=== PATIENT | female | born 1965 | race Caucasian/White ===

== ENCOUNTER 2017-07-29 13:02 | Emergency (ER) | payer OTHER ==
[~2017-07-29] VITALS: Ht 175.3 cm; Wt 79.4 kg
[~2017-07-29 13:02] MED LIST: ABILIFY15 MG PO; AUGMENTIN 875875 MG PO; CELEXA40 MG PO; COLACE100 MG PO; COMPAZINE25 MG RE; CYPROHEPTADINE 44 M1 PO; DARVOCET-N 1001 EACH PO; DILAUDID 4 MG TA4 MG PO; FLEXERIL PO; KEFLEX500 MG PO; LEXAPRO20 MG PO; LITHIUM CARBON450 MG; LITHIUM CARBON600 MG PO; LORAZEPAM 0.50.5 MG PO; MAALOX SUSPENS148 ML PO; MACRODANTIN50 MG PO; METOCLOPRAMIDE10 MG PO; MIRALAX255 GM; NORCO 5-325 TA1 EACH PO; NORCO 7.5-3251 EACH PO; ONDANSETRON HCL4 M2 PO; OXYCODONE HCL 55 MG PO; OXYCODONE HCL5 M1; PENICILLIN VK250 MG PO; PROTONIX40 M2 PO; PYRIDIUM200 MG PO; REGLAN 10 MG TA10 MG PO; SUPRAX400 M1 PO; ULTRAM 50MG TAB50 MG PO; VITAMINE B-1100 MG; [UNRECOGNIZED DRUG - OTHER] PO
[2017-07-29 15:10] LABS: URINE BILIRUBIN NEGATIVE (Negative); URINE BLOOD NEGATIVE (Negative); URINE COLOR YELLOW; URINE GLUCOSE-RANDOM* NEGATIVE (Negative); URINE KETONES NEGATIVE (Negative); URINE PROTEIN (DIPSTICK) NEGATIVE (Negative); URINE UROBILINOGEN 0.2 E.U./dl (0.2-1.0)
[2017-07-29 15:10] LABS: CALCIUM 9.6 mg/dL (8.5-10.1); CREATININE 0.7 mg/dL (0.6-1.0); POTASSIUM 4.4 mmol/L (3.5-5.1)
[2017-07-29 15:16] LABS: ALBUMIN 3.8 g/dL (3.4-5.0); TOTAL BILIRUBIN 0.6 mg/dL (<0.1-1.0); TOTAL PROTEIN 7.7 g/dL (6.4-8.2)
[2017-07-29 15:32] LABS: URINE LEUKOCYTES-REFLEX 1+ (Negative)
[2017-07-29 15:44] LABS: CASTS None Seen /LPF (None Seen); SQUAMOUS 4-10 Moderate /LPF (0-3); URINE RBC 0-2 Rare /HPF (0-2); URINE WBC-REFLEX 0-5 Rare /HPF (0-5)
[2017-07-29 15:45] LABS: CRYSTALS None Seen /LPF (None Seen)
[2017-07-29] MEDS ORDERED: NAPROSYN500 MG PO (16:00)
[2017-07-29] MEDS ORDERED: URISPAS100 MG PO (16:00)
[2017-07-29] MEDS ORDERED: TRAMADOL 50 MG50 MG PO (16:00)
[2017-07-29 16:18] LABS: HEMOGLOBIN 15.9 gm/dL (12.0-15.0); MCV 84.7 fL (80.0-100.0)
[2017-07-29 16:20] LABS: HEMATOCRIT 45.1 % (37.0-47.0); MCH 29.9 pg (26.0-34.0); MCHC 35.2 g/dL (28.0-37.0); RBC 5.33 mil/uL (4.20-5.00); RDW 13.9 % (10.5-14.5); WBC 10.5 thou/uL (4.0-11.0)
[2017-07-29 16:22] LABS: MANUAL DIFF YES
[2017-07-29 16:40] LABS: ABSOLUTE NEUTROPHILS 6.9 thou/uL (1.4-8.2); TOTAL CELL COUNT 100
[2017-07-29 16:48] LABS: PLATELET ESTIMATE NORMAL
[2017-07-29 16:49] LABS: PLATELET COUNT 320 thou/uL (150-400)
== END 2017-07-29 17:00 | disposition home or self-care (01) ==
LOC: ER 13:02
PROVIDERS: Emergency Medicine
DX: R10.12 Left upper quadrant pain (principal); R82.71 Bacteriuria; R30.0 Dysuria; Q62.39 Other obstructive defects of renal pelvis and ureter; Z98.890 Other specified postprocedural states; F17.210 Nicotine dependence, cigarettes, uncomplicated; Z88.2 Allergy status to sulfonamides; Z88.5 Allergy status to narcotic agent; Z88.1 Allergy status to other antibiotic agents

== ENCOUNTER 2019-03-22 17:58 | Emergency (ER) | payer OTHER ==
[~2019-03-22] VITALS: Ht 175.3 cm; Wt 61.2 kg
[~2019-03-22 17:58] MED LIST changes: +NAPROSYN500 MG PO; +TRAMADOL 50 MG50 MG PO; +URISPAS100 MG PO
[2019-03-22] MEDS ORDERED: TRAZODONE HCL50 MG PO (18:11)
[2019-03-22] MEDS ORDERED: CELEXA20 MG PO (18:12)
[2019-03-22] MEDS ORDERED: GABAPENTIN 100100 MG PO (18:12)
[2019-03-22] MEDS ORDERED: IBUPROFEN 600600 M1 PO (19:18)
[2019-03-22 19:34] VITALS: BP 153/86
== END 2019-03-22 19:35 | disposition home or self-care (01) ==
LOC: ER 17:58
DX: S16.1XXA Strain of muscle, fascia and tendon at neck level, initial encounter (principal); S09.8XXA Other specified injuries of head, initial encounter; M79.661 Pain in right lower leg; M79.662 Pain in left lower leg; F17.210 Nicotine dependence, cigarettes, uncomplicated; Z88.5 Allergy status to narcotic agent; Z88.1 Allergy status to other antibiotic agents; Z88.2 Allergy status to sulfonamides; Z95.5 Presence of coronary angioplasty implant and graft; Z98.890 Other specified postprocedural states; Z90.49 Acquired absence of other specified parts of digestive tract; V89.2XXA Person injured in unspecified motor-vehicle accident, traffic, initial encounter; Y92.89 Other specified places as the place of occurrence of the external cause; Y93.89 Activity, other specified; Y99.8 Other external cause status